=== PATIENT | female | born 1940 | race African-American/Black ===

== ENCOUNTER 2023-01-17 15:03 | Observation (INO) | payer MEDICARE, SELFPAY ==
[2023-01-17] VITALS (14 sets, daily range): BP systolic 94–130; BP diastolic 45–61; PULSE 84–101; RESP 12–18; TEMP 36.5–36.9; O2SAT 98–100; BMI 17.9
--- NOTE | ~2023-01-17 | CT_ITS ---
EXAMINATION: CT abdomen pelvis wo con DATE: 01/17/2023 17:46 INDICATION: Weakness, black stools, weight loss TECHNIQUE: Computed tomography (CT) of the abdomen and pelvis was performed without intravenous contr ast. The dose-length product (DLP) was 232.06 mGy-cm. Automated exposure control and iterative recons truction technique were employed. COMPARISON: None FINDINGS: The lung bases are clear. The heart size is normal. The liver, spleen, pancreas, and right adrenal gland are normal. There is a 10 mm low-density mass of the left adrenal gland, consistent wit h an adenoma. Nonobstructing stones of the right kidney measure up to 7 mm. There is a 5 mm nonobstru cting stone of the left kidney. There is mild bilateral hydronephrosis. No pathologically enlarged ab dominal or pelvic lymph nodes are identified. The patient appears to have undergone resection with ne obladder formation. There is mild gaseous distention of the rectum. A colostomy is present in the rig ht lower quadrant. There is a moderate volume of liquid stool in the colon. No free intraperitoneal g as is identified. There is moderate lumbar spondylosis. IMPRESSION: 1. No CT correlate for the patient's symptoms. 2. Mild bilateral hydronephrosis likely related to cystectomy and neobladder formation 3. Bilateral nonobstructing nephrolithiasis. Reviewed, dictated and finalized at location F. IMPRESSION: 1. No CT correlate for the patient's symptoms. 2. Mild bilateral hydronephrosis likely related to cystectomy and neobladder fo rmation 3. Bilateral nonobstructing nephrolithiasis.
--- NOTE | 2023-01-17 15:14 | ECG_ITS ---
Measurements Intervals Dent Rate: 86 P: 70 MA: 243 QRS: 0 QRSD: 97 T: 79 QT: 328 QTc: 392 Interpretive Statements SINUS RHYTHM WITH FIRST DEGREE AV BLOCK POSSIBLE LEFT ATRIAL ENLARGEMENT INCOMPLETE RIGHT BUNDLE BRANCH BLOCK BASELINE ARTIFACT- I, II, III, AVR, AVL BORDERLINE ECG NO PREVIOUS ECG AVAILABLE FOR COMPARISON Electronically Signed On 01-17-2023 16:13:28 CDT by Gilberto Jean Baptiste D.O.
--- NOTE | 2023-01-17 15:54 | ED.GENADULT ---
HPI - General Adult General Chief complaint: Weakness Stated complaint: weakness Time Seen by Provider: 01/17/23 15:11 Source: family and RN notes reviewed History of Present Illness HPI narrative: Patient presents emergency department from home for weakness. She is per the patient as well as family that is present. Patient does have a history of dementia and is a poor historian currently was at home by herself. Per the family the patient has been more weak over the past 1 week. States she has not been eating and drinking as much as well. Patient denies any complaints of pain states she has been having dark stools for the past several months. Patient denies being on any blood thinners. She denies any abdominal pain but does note gurgling in her abdomen at times she states she does note some mild shortness of breath with walking she denies any fevers or chills chest pain abdominal pain nausea vomiting or any other symptoms Related Data Allergies Allergy/AdvReac Type Severity Reaction Status Date / Time No Known Allergies Allergy Verified 01/17/23 15:04 Review of Systems Review of Systems: Gen.: Denies fevers or chills ENT: Denies congestion Respiratory: Denies shortness of breath or cough CV: Denies chest pain or palpitations GI: Denies abdominal pain nausea, emesis or diarrhea reports black stool Musculoskeletal: Denies back pain or muscle pain Neuro: Weakness in Skin: Denies rash Except as documented, all other systems reviewed and negative [facility] Past Medical History Medical History (Updated 01/17/23 @ 18:36 by Santosh Flanagan DO) Dementia Social History Social History (Updated 01/17/23 @ 15:55 by Santosh Flanagan DO) Smoking status: Never smoker Exam Narrative: APPEARANCE: No acute distress, nontoxic, resting in bed EYES: EOMI HEENT: Normocephalic, atraumatic, OMM RESPIRATORY: No respiratory distress Clear to auscultation bilaterally with no rhonchi wheezing or rales. CARDIOVASCULAR: Regular rate and rhythm without murmurs rubs or gallops. ABDOMINAL: Soft, nontender, nondistended, no rebound or guarding urostomy present Rectal: No hemorrhoids or fissures black stool present that is Hemoccult negative MUSCULOSKELETAl: Moves all extremities. No clubbing, cyanosis or edema. NEURO: Awake and alert. Following commands, speech normal, no focal deficits SKIN:: Warm, dry. No rashes lesions or abrasions PSYCHIATRIC: Normal affect/mood, Course Course Emergency Course: UA was obtained from urostomy Called and discussed with ANASTASIA Nevarez for Dr. Olivarez for hospitalist service agrees with admission at this time with patient started on Rocephin Discussed with patient and family results of workup and diagnosis. Discussed need for admission. Patient and family understand and agree to current treatment plan Vital Signs Vital signs: Vital Signs Pulse Rate 95 01/17/23 15:11 Respiratory Rate 13 01/17/23 15:11 Pulse Oximetry 98 01/17/23 15:11 Temperature 98.5 F 01/17/23 15:14 Pulse Rate 84 01/17/23 16:55 Respiratory Rate 18 01/17/23 16:45 Blood Pressure 116/56 L 01/17/23 16:01 Pulse Oximetry 100 01/17/23 16:01 Oxygen Delivery Room Air 01/17/23 15:14 Medical Decision Making MDM Narrative Medical decision making narrative: Patient presents for weakness over the past week family states has not been eating as well patient does have a history of dementia. Patient has no complaints of fever or any other acute symptoms on work-up it is noted she has a hemoglobin of 8.3 no history of anemia and a rectal exam was performed as patient states she had black stool stool is black but is Hemoccult negative patient also noted to have renal sufficiency with a creatinine 1.9 states she does have chronic renal sufficiency was unsure of what her normal renal function is patient is noted to have a UA with a urostomy secondary to these findings I did obtain a CT scan of the abdomen pelvis which did n
[2023-01-17 16:30] LABS: Basophils Percent Auto 0.5 % (0.2-1.2); Eosinophils Absolute Auto 0.1 K/mm3 (0-0.3); Eosinophils Percent Auto 1.2 % (0-4.4); Hemoglobin 8.3 g/dL (12.0-15.0); Immature Granulocyte Absolute 0.02 K/mm3 (0.00-0.031); Immature Granulocyte Percent A 0.2 % (0-0.5); Lymphocytes Absolute Auto 2.46 K/mm3 (0.9-3.2); Lymphocytes Percent Auto 30.1 % (18.3-44.2); Mean Corpuscular HGB Conc 28.6 g/dl (32-36); Mean Corpuscular Hemoglobin 27.5 pg (26-34); Mean Platelet Volume 8.2 fl (7.4-10.4); Monocytes Absolute Auto 0.5 K/mm3 (0.1-0.6); Monocytes Percent Auto 6.1 % (2.6-8.5); Neutrophils Absolute Auto 5.1 K/mm3 (1.3-6.7); Neutrophils Percent Auto 61.9 % (45.5-73.1); Platelet Count Result 363 k/mm3 (150-375); Red Blood Count 3.02 M/mm3 (4.2-5.4); Red Cell Distribution Width 14.6 % (11.5-14.5); White Blood Count 8.2 K/mm3 (4.5-10.0)
[2023-01-17 16:36] LABS: INR 1.1; Partial Thromboplastin Time 30.5 SECONDS (22.3-36.8); Prothrombin Time 14.1 Seconds (11.1-14.7)
[2023-01-17 16:37] LABS: Alanine Aminotransferase 13 U/L (6-35); Albumin Level 3.8 g/dL (3.5-5.1); Alkaline Phosphatase 94 U/L (38-126); Anion Gap 11 mmol/L (8-16); Aspartate Amino Transferase 20 U/L (14-36); Bilirubin,Total 0.4 mg/dL (0.2-1.3); Blood Urea Nitrogen 37 mg/dL (7-17); Calcium 9.6 mg/dL (8.4-10.2); Carbon Dioxide 7 mmol/L (22-30); Chloride 116 mmol/L (98-107); Estimated Glomerular Filt Rate 31; Glucose 78 mg/dL (65-110); Potassium 3.6 mmol/L (3.4-5.0); Sodium 134 mmol/L (137-145)
[2023-01-17 16:48] LABS: Hypochromasia 1+ (NORMAL); Ovalocytes 1+ (NORMAL); Platelet Estimate Adequate (Adequate)
[2023-01-17 16:49] LABS: Schistocytes None Seen (NORMAL)
[2023-01-17] MEDS: SODIUM CHLORIDE 0.9% IV 1,000 ML 999 ML IV CONT (16:52)
[2023-01-17 17:06] LABS: Appearance Urine Turbid (Clear); Bacteria Urine 4+ /hpf; Bilirubin Urine Negative (Negative); Blood Urine Negative (Negative); Glucose Urine UA Negative (Negative); Ketones Urine Negative (Negative); Leukocyte Esterase Ur 3+ LEU/UL (Negative); Need Manual Microscopic Reviewed; Nitrate Urine Negative (Negative); Protein Urine 2+ mg/dL (Negative); RBC Urine 0-2 /hpf (0-2); Specific Grav Ur 1.012 (1.001-1.035); Squamous Epithelial Cell Urine None seen /hpf (Few); Urobilinogen Urine 0.2 mg/dL (<2.0); WBC Urine 21-50 /hpf; pH Urine 8.5 (5.0-9.0)
[2023-01-17 17:08] LABS: Color Urine Red (Yellow)
[2023-01-17 17:18] LABS: Add Urine Microscopic? YES
[2023-01-17 20:07] LABS: Lactic Acid Reflex 0.5 mmol/L (0.7-2.0)
--- NOTE | 2023-01-17 21:46 | PM.IMHP ---
H&P: HPI History of Present Illness Date/Time: 01/17/23 21:46 Chief Complaint: Weakness Narrative: This is an 82-year-old female patient with a history of dementia. You patient is a very poor historian and the family's at the bedside helping her with the information. The patient has been feeling more weak over the last 7 days. She has not been eating or drinking very well. Patient denies any complaints. The patient stated that she has been having black stools. The patient has no nausea vomiting or diarrhea. She denied any fever chills. She does not complain of any abdominal discomfort. The family members stated that the patient has chronic kidney disease stage IIIB. The patient does follow with Nephrology. The patient also has a history of having bladder cancer and has a urostomy. Abdominal pelvis CT was read as follows. No CT correlate for the patient's symptoms. 2. Mild bilateral hydronephrosis likely related to cystectomy and neobladder formation 3. Bilateral nonobstructing nephrolithiasis. Her H&H is 8.3 and 29.0 with no prior labs for comparison. Sodium is 134. Chloride 116. BUN 37 creatinine 1.9. Again no prior labs for comparison. Patient's urine was positive for UTI. The patient was started on Rocephin and IV fluids in the emergency room. Patient is being admitted to observation status on the date of service of 01/17/2023. Review of Systems Review of Systems: All systems reviewed & are unremarkable except as noted in HPI and below Constitutional: Constitutional: Reports as per HPI and Reports no additional constitutional complaints Eyes: Eyes: Reports as per HPI and Reports no additional eye complaints ENT: Reports system reviewed and no additional complaints, except as documented and Reports Normal hearing present Cardiovascular: Cardiovascular: Reports no additional cardiovascular complaints Respiratory: Respiratory: Reports no additional respiratory complaints and Reports no additional respiratory complaints Gastrointestinal: Gastrointestinal: Reports as per HPI and Reports no additional gastrointestinal complaints Musculoskeletal: Musculoskeletal: Reports no additional musculoskeletal complaints Integumentary/Breasts: Skin/Breast: Reports system reviewed and no additional complaints, except as docu and Reports as per HPI Neurologic: Reports system reviewed and no additional complaints, except as documented, Reports as per HPI and Reports Normal hearing present Psychiatric: Psychiatric: Reports no additional psychiatric complaints and Reports as per HPI Endocrine: Endocrine: Reports no additional endocrine complaints Hematologic/Lymphatic: Hematologic/Lymphatic: Reports no additional hematologic/lymphatic complaints Allergic/Immunologic: Allergic/Immunologic: Reports no additional allergic/immunologic complaints [facility] Past Medical History Medical History (Updated 01/17/23 @ 21:53 by Geri Ratliff NP) Anemia Chronic renal failure, stage 3b Dementia Glaucoma History of bladder cancer Kidney stone Surgical History Surgical History (Updated 01/17/23 @ 21:53 by Geri Ratliff NP) History of extraction of renal calculus History of urostomy Hx of cholecystectomy Family History Family History (Updated 01/17/23 @ 21:54 by Geri Ratliff NP) Mother Cerebrovascular accident Social History Social History (Updated 01/17/23 @ 21:55 by Geri Ratliff NP) Social History: The patient is and lives with family. She has 3 children. 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 Her daughter Ginger is the durable [id number] Code status full code Smoking status: Never smoker Meds Home Medications and Allergies Home Medications Medication Instructions Recorded Confirmed Type lisinopril 2.5 mg tablet 205 mg PO DAILY 01/17/23 01/17/23 History Allergies Allergy/AdvReac Type Severity Reaction Status Date / Time No Known Allergies Aller
--- NOTE | 2023-01-17 22:16 | ADMGEN ---
This patient, Micki Cunha, was admitted to [facility] Surg Room 332-01. Patient/family oriented to hospital policies and general routines including ID bracelet, bed and alarms, visiting hours, pain management, procedures, bathroom and other care routines, personal items, smoking policy, room service/diet, and visiting hours. Information on how to activate the Rapid Response Team has been discussed. Patient/Family are encouraged to report perceived risks to care and to ask questions if they do not understand what they are told or what they should do.
[2023-01-17] MEDS: SODIUM CHLORIDE 0.9% IV 1,000 ML 80 ML IV CONT (22:39)
[2023-01-18 00:11] LABS: Iron 64 ug/dL (37-170)
[2023-01-18 00:12] LABS: Lactate Dehydrogenase 155 U/L (120-246)
[2023-01-18 00:20] LABS: Transferrin 143 mg/dL (206-381)
[2023-01-18 00:21] LABS: Percent Iron Saturation 31 % (20-50)
[2023-01-18 01:20] LABS: Folic Acid 5.8 ng/mL (2.76->20)
[2023-01-18 06:00] VITALS: BP 89/38; PULSE 75; RESP 18; TEMP 36.6; O2SAT 100
[2023-01-18 07:42] LABS: Immature Reticulocyte Fraction 20.8 % (3.0-15.9); Reticulocyte Hemoglobin Conten 26.2 pg (28.2-35.7); Reticulocyte Percent 3.36 % (0.7-4.3); Reticulocytes Absolute 0.09 B/L (32.2-175.7)
[2023-01-18 07:43] LABS: Basophils Absolute Auto 0.1 K/mm3 (0.0-0.1); Basophils Percent Auto 0.8 % (0.2-1.2); Eosinophils Absolute Auto 0.1 K/mm3 (0-0.3); Eosinophils Percent Auto 1.4 % (0-4.4); Hematocrit 27.9 % (37.0-47.0); Hemoglobin 7.9 g/dL (12.0-15.0); Immature Granulocyte Absolute 0.06 K/mm3 (0.00-0.031); Immature Granulocyte Percent A 0.8 % (0-0.5); Lymphocytes Absolute Auto 2.13 K/mm3 (0.9-3.2); Lymphocytes Percent Auto 29.3 % (18.3-44.2); Mean Corpuscular HGB Conc 28.3 g/dl (32-36); Mean Corpuscular Hemoglobin 27.7 pg (26-34); Mean Corpuscular Volume 97.9 fl (80-100); Mean Platelet Volume 8.3 fl (7.4-10.4); Monocytes Absolute Auto 0.5 K/mm3 (0.1-0.6); Monocytes Percent Auto 6.3 % (2.6-8.5); Neutrophils Absolute Auto 4.5 K/mm3 (1.3-6.7); Neutrophils Percent Auto 61.4 % (45.5-73.1); Platelet Count Result 330 k/mm3 (150-375); Red Blood Count 2.85 M/mm3 (4.2-5.4); Red Cell Distribution Width 14.6 % (11.5-14.5); White Blood Count 7.3 K/mm3 (4.5-10.0)
[2023-01-18 07:57] LABS: Alanine Aminotransferase 12 U/L (6-35); Albumin Level 3.3 g/dL (3.5-5.1); Alkaline Phosphatase 82 U/L (38-126); Anion Gap 9 mmol/L (8-16); Aspartate Amino Transferase 16 U/L (14-36); Bilirubin,Total 0.3 mg/dL (0.2-1.3); Blood Urea Nitrogen 29 mg/dL (7-17); Calcium 8.9 mg/dL (8.4-10.2); Carbon Dioxide 10 mmol/L (22-30); Chloride 121 mmol/L (98-107); Estimated CRCL calculation 21 ml/min; Estimated Glomerular Filt Rate 40; Glucose 84 mg/dL (65-110); Potassium 3.5 mmol/L (3.4-5.0); Sodium 140 mmol/L (137-145)
[2023-01-18 08:37] LABS: Hypochromasia 1+ (NORMAL); Ovalocytes 1+ (NORMAL); Platelet Estimate Adequate (Adequate)
[2023-01-18 08:38] LABS: Anisocytosis 1+ (NORMAL); Schistocytes None Seen (NORMAL)
--- NOTE | 2023-01-18 09:22 | WPDURCON ---
Assessment and Plan Assessment and plan (1) Kidney stone: Code(s): N20.0 - Calculus of kidney Status: Acute Assessment and Plan: Nonobstructive at this time. Nothing acute to do. These can be monitored (2) History of bladder cancer: Code(s): Z85.51 - Personal history of malignant neoplasm of bladder Status: Acute Assessment and Plan: She really has no active urologic issues at this time. Her ostomy is pink and viable. She has no issues with her ostomy bag. Her cystectomy was over 20 years ago. She has been in ED and terms of bladder cancer (3) Hydronephrosis: Code(s): N13.30 - Unspecified hydronephrosis Status: Acute Assessment and Plan: Mild on CT scan. This is common and expected and people with an ileal conduit in his due to vesicoureteral reflux (4) Abnormal urinalysis: Code(s): R82.90 - Unspecified abnormal findings in urine Status: Acute Assessment and Plan: This represents contamination not infection. No need for antibiotics Urology Consult Note HPI Date Seen: 01/18/23 Requesting Physician: Anish Olivarez MD Primary Care Provider: PHYSICIAN NOT ON STAFF Consult Narrative Reason for consult: Bladder cancer Narrative: Micki Cunha is a 82 year old female. She has history of bladder cancer. She had a radical cystectomy 20 years ago. She has been no evidence of disease since. She is admitted to the hospital for non urologic reasons. She had a CT scan which shows bilateral nonobstructing stones and mild bilateral hydronephrosis. This mild bilateral hydronephrosis is secondary to ostomy placement and reflux and is unlikely to be obstructive. She has no symptoms of urinary tract infection. No fever blood in the urine. No leukocytosis. She does have an abnormal urinalysis but she is colonized due to the urostomy. She currently has no specific complaints from a urologic aspect. She does not get recurrent urinary tract infections. She does not get gross hematuria. She has no specific issues related to her ostomy Review of Systems Review of Systems: All systems reviewed & are unremarkable except as noted in HPI and below PMFSH Past Medical History Medical History Anemia Chronic renal failure, stage 3b Dementia Glaucoma History of bladder cancer Kidney stone Surgical History Surgical History History of extraction of renal calculus History of urostomy Hx of cholecystectomy Family History Family History (Updated 01/17/23 @ 21:54 by Geri Ratliff NP) Mother Cerebrovascular accident Social History Social History Social History: The patient is and lives with family. She has 3 children. 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 Her daughter Ginger is the durable [id number]-[id number] Code status full code Smoking status: Former smoker Alcohol intake: never Substance use: never Lack of Transportation: No Lack of Food: Never True Current Housing: I Have Housing Concerned About Future Housing: No Difficulty Paying Gas/Electric Bills: No Difficulty Paying for Meds: No Currently Unemployed: No Education: High School Diploma/GED Difficulty w/ Childcare or Family Care: No Spiritual care concerns: No Meds Home Medications and Allergies Home Medications Medication Instructions Recorded Confirmed Type lisinopril 2.5 mg tablet 2.5 mg PO DAILY 01/17/23 01/17/23 History Allergies Allergy/AdvReac Type Severity Reaction Status Date / Time No Known Allergies Allergy Verified 01/17/23 15:04 Vital Signs Vital Signs - 24 hr 01/17/23 15:14 01/17/23 16:55 01/17/23 15:11 Temperature 98.5 F Pulse Rate 88 84 95 Respiratory Rate 18 13 Blood Pressure 121/58 L Pulse Oximetry 10
[2023-01-18 09:31] VITALS: O2SAT 94
[2023-01-18] MEDS: FAMOTIDINE 20 MG/2 ML VIAL IV PUSH ×2 (10:05→21:32)
[2023-01-18 11:53] LABS: Hematocrit 27.6 % (37.0-47.0); Hemoglobin 7.7 g/dL (12.0-15.0)
--- NOTE | 2023-01-18 13:58 | PM.IMPN ---
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 Continue to monitor. 01/18/2023 Interval history: 82-year-old female with history of bladder cancer presented with weakness and tiredness also complains of black tarry stool, suspicious for upper GI bleed and anemia patient states sees been feeling require some time now cough, also patient seen by urologist with history of bladder cancer and evaluated patient remains clinically stable no further workup is recommended, will do the stool Hemoccult will monitor hemoglobin and further recommendation to follow (2) Anemia: Code(s): D64.9 - Anemia, unspecified Status: Acute Assessment and Plan: H&H every 6 hours Check stool for occult blood The patient is not on any blood thinners. The patient was Hemoccult negative in the emergency room. The patient stated that she had dark stools at home. (3) Acute UTI: Code(s): N39.0 - Urinary tract infection, site not specified Status: Acute Assessment and Plan: The patient was started on Rocephin Blood and urine cultures are pending Tailor antibiotics to culture and sensitivity results. (4) Glaucoma: Code(s): H40.9 - Unspecified glaucoma Status: Acute Assessment and Plan: Continue with her eyedrops of latanoprost (5) Kidney stone: Code(s): N20.0 - Calculus of kidney Status: Acute Assessment and Plan: Mild bilateral hydronephrosis likely related to cystectomy and neobladder formation 3. Bilateral nonobstructing nephrolithiasis. Urology has been consulted. (6) Dementia: Code(s): F03.90 - Unspecified dementia, unspecified severity, without behavioral disturbance, psychotic disturbance, mood disturbance, and anxiety Status: Acute Assessment and Plan: The patient is no longer on any medications for dementia. She had been on medication in the past but was taken off of them. Subjective Date/time seen: 01/18/23 13:58 Weakness HPI-Narrative: This is an 82-year-old female patient with a history of dementia.? You patient is a very poor historian and the family's at the bedside helping her with the information.? The patient has been feeling more weak over the last 7 days.? She has not been eating or drinking very well.? Patient denies any complaints.? The patient stated that she has been having black stools.? The patient has no nausea vomiting or diarrhea.? She denied any fever chills.? She does not complain of any abdominal discomfort.? The family members stated that the patient has chronic kidney disease stage IIIB.? The patient does follow with Nephrology.? The patient also has a history of having bladder cancer and has a urostomy.? Abdominal pelvis CT was read as follows. No CT correlate for the patient's symptoms. 2. Mild bilateral hydronephrosis likely related to cystectomy and neobladder formation 3. Bilateral nonobstructing nephrolithiasis. Her H&H is 8.3 and 29.0 with no prior labs for comparison.? Sodium is 134.? Chloride 116.? BUN 37 creatinine 1.9.? Again no prior labs for comparison.? Patient's urine was positive for UTI.? The patient was started on Rocephin and IV fluids in the emergency room. 01/18/2023 Interval history: 82-year-old female with history of bladder cancer presented with weakness and tiredness also complains of black tarry stool, suspicious for upper GI bleed and anemia patient states sees been feeling require some time now cough, also patient seen by urologist with history of bladder cancer and evaluated patient remains clinically stable no further workup is recommended, will do the stool Hemoccult will monitor hemoglobin and further recommendation to follow Review of Systems Review of Systems: All syst
[2023-01-18 14:00] VITALS: BP 112/50; PULSE 83; RESP 20; TEMP 36.2; O2SAT 100
[2023-01-18] MEDS: SODIUM CHLORIDE 0.9% IV 1,000 ML 80 ML IV CONT (14:23)
[2023-01-18 16:33] LABS: Hematocrit 23.8 % (37.0-47.0)
[2023-01-18] MEDS: POTASSIUM CHLORIDE 20 MEQ TABLET 40 MEQ PO (16:34)
--- NOTE | 2023-01-18 16:51 | PC.NURSE ---
Dr. Olivarez notified that patients Hgb is 7. Patient is currently getting 80 ml of NS/hr. No signs or symptoms of bleeding noted,patient denies abdominal pain, dizziness, fatigue, or shortness of breath. Still waiting for patient to provide stool sample for occult stool test. Patient eating and drinking. Dr Olivarez approved to discontinue IV fluids at this time.
[2023-01-18 21:21] VITALS: BP 114/53; PULSE 75; RESP 18; TEMP 36.6; O2SAT 98
[2023-01-19 06:00] VITALS: BP 106/55; PULSE 70; RESP 20; TEMP 36.4; O2SAT 100
[2023-01-19 07:00] LABS: Hematocrit 30.6 % (37.0-47.0); Hemoglobin 8.7 g/dL (12.0-15.0); Mean Corpuscular HGB Conc 28.4 g/dl (32-36); Mean Corpuscular Hemoglobin 27.7 pg (26-34); Mean Corpuscular Volume 97.5 fl (80-100); Mean Platelet Volume 8.3 fl (7.4-10.4); Platelet Count Result 352 k/mm3 (150-375); Red Blood Count 3.14 M/mm3 (4.2-5.4); Red Cell Distribution Width 14.7 % (11.5-14.5); White Blood Count 7.1 K/mm3 (4.5-10.0)
[2023-01-19 07:13] LABS: Anion Gap 10 mmol/L (8-16); Blood Urea Nitrogen 23 mg/dL (7-17); Calcium 9.4 mg/dL (8.4-10.2); Carbon Dioxide 9 mmol/L (22-30); Chloride 123 mmol/L (98-107); Estimated CRCL calculation 24 ml/min; Estimated Glomerular Filt Rate 48; Glucose 88 mg/dL (65-110); Magnesium 1.5 mg/dL (1.6-2.3); Potassium 3.8 mmol/L (3.4-5.0); Sodium 142 mmol/L (137-145)
[2023-01-19] MEDS: FAMOTIDINE 20 MG/2 ML VIAL IV PUSH ×2 (08:40→21:40)
[2023-01-19 14:00] VITALS: BP 129/57; PULSE 88; RESP 20; TEMP 36.2; O2SAT 100
--- NOTE | 2023-01-19 14:24 | PM.IMPN ---
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 Continue to monitor. 01/19/2023 Interval history: 82-year-old female with history of bladder cancer presented with weakness and tiredness also complains of black tarry stool, suspicious for upper GI bleed and anemia patient states she is been feeling tired some time now cough, also patient seen by urologist with history of bladder cancer and evaluated patient remains clinically stable no further workup is recommended, patient hemoglobin remains stable, if his stool Hemoccult is positive will consult GI, will do the stool Hemoccult will monitor hemoglobin and further recommendation to follow (2) Anemia: Code(s): D64.9 - Anemia, unspecified Status: Acute Assessment and Plan: H&H every 6 hours Check stool for occult blood The patient is not on any blood thinners. The patient was Hemoccult negative in the emergency room. The patient stated that she had dark stools at home. (3) Acute UTI: Code(s): N39.0 - Urinary tract infection, site not specified Status: Acute Assessment and Plan: The patient was started on Rocephin Blood and urine cultures are pending Tailor antibiotics to culture and sensitivity results. (4) Glaucoma: Code(s): H40.9 - Unspecified glaucoma Status: Acute Assessment and Plan: Continue with her eyedrops of latanoprost (5) Kidney stone: Code(s): N20.0 - Calculus of kidney Status: Acute Assessment and Plan: Mild bilateral hydronephrosis likely related to cystectomy and neobladder formation 3. Bilateral nonobstructing nephrolithiasis. Urology has been consulted. (6) Dementia: Code(s): F03.90 - Unspecified dementia, unspecified severity, without behavioral disturbance, psychotic disturbance, mood disturbance, and anxiety Status: Acute Assessment and Plan: The patient is no longer on any medications for dementia. She had been on medication in the past but was taken off of them. Subjective Date/time seen: 01/19/23 14:24 01/19/2023 Interval history: 82-year-old female with history of bladder cancer presented with weakness and tiredness also complains of black tarry stool, suspicious for upper GI bleed and anemia patient states she is been feeling tired some time now cough, also patient seen by urologist with history of bladder cancer and evaluated patient remains clinically stable no further workup is recommended, patient hemoglobin remains stable, if his stool Hemoccult is positive will consult GI, will do the stool Hemoccult will monitor hemoglobin and further recommendation to follow Review of Systems Review of Systems: All systems reviewed & are unremarkable except as noted in HPI and below Exam Narrative: Patient is comfortable, NAD HEENT: eyes are clear and none icteric LUNGS: Normal respiratory effort ABD: Not distended Lower extremities: no edema SKIN: nonjaundiced Neuro: grossly intact. Objective Data Vital Signs Vital Signs: Vital Signs - 24 hr 01/18/23 21:21 01/18/23 20:25 01/19/23 06:00 Temperature 97.8 F 97.6 F Pulse Rate 75 70 Respiratory Rate 18 20 Blood Pressure 114/53 L 106/55 L Pulse Oximetry 98 100 Oxygen Delivery Room Air 01/19/23 14:00 Temperature 97.1 F L Pulse Rate 88 Respiratory Rate 20 Blood Pressure 129/57 L Pulse Oximetry 100 Oxygen Delivery Intake/Output Intake/Output: Intake & Output 01/16/23 01/17/23 01/18/23 01/19/23 23:59 23:59 23:59 23:59 Intake Total 3150 1422 Output Total 400 Balance 3150 1022 Meds/Results Medications: Active Medications Generic Name Dose Route Start Last Admin Trade Name Freq PRN Reason Stop Dose Admin Famotidine
[2023-01-19 20:00] VITALS: PULSE 82; RESP 20; O2SAT 100
[2023-01-19 20:32] VITALS: BP 119/52; PULSE 82; RESP 20; TEMP 36.9; O2SAT 100
[2023-01-19 21:40] LABS: IFOB Positive Control Positive; Immunochemical Fecal Occult Bl Negative (N)
[2023-01-20 06:00] VITALS: BP 104/55; PULSE 72; RESP 20; TEMP 36.8; O2SAT 100
[2023-01-20 07:41] LABS: Hematocrit 27.2 % (37.0-47.0); Hemoglobin 7.8 g/dL (12.0-15.0); Mean Corpuscular HGB Conc 28.7 g/dl (32-36); Mean Corpuscular Hemoglobin 27.7 pg (26-34); Mean Corpuscular Volume 96.5 fl (80-100); Mean Platelet Volume 8.2 fl (7.4-10.4); Platelet Count Result 302 k/mm3 (150-375); Red Blood Count 2.82 M/mm3 (4.2-5.4); Red Cell Distribution Width 14.8 % (11.5-14.5); White Blood Count 7.3 K/mm3 (4.5-10.0)
[2023-01-20 07:52] LABS: Anion Gap 8 mmol/L (8-16); Blood Urea Nitrogen 20 mg/dL (7-17); Calcium 8.6 mg/dL (8.4-10.2); Carbon Dioxide 10 mmol/L (22-30); Chloride 119 mmol/L (98-107); Estimated CRCL calculation 22 ml/min; Estimated Glomerular Filt Rate 44; Glucose 83 mg/dL (65-110); Magnesium 1.6 mg/dL (1.6-2.3); Potassium 3.5 mmol/L (3.4-5.0); Sodium 137 mmol/L (137-145)
[2023-01-20] MEDS: MAGNESIUM SULF 2 GM/WATER 50ML 2 GM/50 ML BAG IVPB (09:22)
[2023-01-20] MEDS: FAMOTIDINE 20 MG/2 ML VIAL IV PUSH (09:23)
--- NOTE | 2023-01-20 11:21 | PM.DS ---
DS: Admitting Diagnosis Discharge Date 01/20/2023 Admitting Diagnosis Weakness DS: Discharge Diagnosis Discharge Diagnosis (1) Chronic renal failure, stage 3b: Code(s): N18.32 - Chronic kidney disease, stage 3b Status: Acute Assessment and Plan: The daughter showed me the paperwork from the patient's hospice nurse practitioner and she has stage 3B chronic renal failure. Continue to monitor. 01/19/2023 Interval history: 82-year-old female with history of bladder cancer presented with weakness and tiredness also complains of black tarry stool, suspicious for upper GI bleed and anemia patient states she is been feeling tired some time now cough, also patient seen by urologist with history of bladder cancer and evaluated patient remains clinically stable no further workup is recommended, patient hemoglobin remains stable, if his stool Hemoccult is positive will consult GI, will do the stool Hemoccult will monitor hemoglobin and further recommendation to follow (2) Anemia: Code(s): D64.9 - Anemia, unspecified Status: Acute Assessment and Plan: H&H every 6 hours Check stool for occult blood The patient is not on any blood thinners. The patient was Hemoccult negative in the emergency room. The patient stated that she had dark stools at home. (3) Acute UTI: Code(s): N39.0 - Urinary tract infection, site not specified Status: Acute Assessment and Plan: The patient was started on Rocephin Blood and urine cultures are pending Tailor antibiotics to culture and sensitivity results. (4) Glaucoma: Code(s): H40.9 - Unspecified glaucoma Status: Acute Assessment and Plan: Continue with her eyedrops of latanoprost (5) Kidney stone: Code(s): N20.0 - Calculus of kidney Status: Acute Assessment and Plan: Mild bilateral hydronephrosis likely related to cystectomy and neobladder formation 3. Bilateral nonobstructing nephrolithiasis. Urology has been consulted. (6) Dementia: Code(s): F03.90 - Unspecified dementia, unspecified severity, without behavioral disturbance, psychotic disturbance, mood disturbance, and anxiety Status: Acute Assessment and Plan: The patient is no longer on any medications for dementia. She had been on medication in the past but was taken off of them. DS: Summary Hospital Course Reason for hospitalization: Weakness Narrative: This is an 82-year-old female patient with a history of dementia.? You patient is a very poor historian and the family's at the bedside helping her with the information.? The patient has been feeling more weak over the last 7 days.? She has not been eating or drinking very well.? Patient denies any complaints.? The patient stated that she has been having black stools.? The patient has no nausea vomiting or diarrhea.? She denied any fever chills.? She does not complain of any abdominal discomfort.? The family members stated that the patient has chronic kidney disease stage IIIB.? The patient does follow with Nephrology.? The patient also has a history of having bladder cancer and has a urostomy.? Abdominal pelvis CT was read as follows. No CT correlate for the patient's symptoms. 2. Mild bilateral hydronephrosis likely related to cystectomy and neobladder formation 3. Bilateral nonobstructing nephrolithiasis. Her H&H is 8.3 and 29.0 with no prior labs for comparison.? Sodium is 134.? Chloride 116.? BUN 37 creatinine 1.9.? Again no prior labs for comparison.? Patient's urine was positive for UTI.? The patient was started on Rocephin and IV fluids in the emergency room.? Patient is being admitted to observation status on the date of service of 01/17/2023. Hospital Course: ?82-year-old female with history of bladder cancer presented with weakness and tiredness also complains of black tarry stool, suspicious for upper GI bleed and anemia patient states she is been feeling tired for some time now coughing , also patient s
[2023-01-21 13:36] LABS: Albumin 3.3 g/dL (3.8-4.8); Alpha 1 Globulin 0.3 g/dL (0.2-0.3); Alpha 2 Globulin 0.5 g/dL (0.5-0.9); Beta 1 Globulin 0.3 g/dL (0.4-0.6); Gamma Globulin 0.9 g/dL (0.8-1.7); Protein, Total 5.4 g/dL (6.1-8.1)
[2023-01-22 20:49] LABS: Haptoglobin 76 mg/dL (43-212)
[2023-01-24 05:48] LABS: Creatinine, Random Urine 29 mg/dL (20-275); Total Protein/Creatinine Ratio 966 mg/g creat (24-184)
[2023-01-24 22:37] LABS: Soluble Transferrin Receptor 1.77 mg/L (0.76-1.76)
== END 2023-01-20 12:10 | disposition home or self-care (01) ==
LOC: ANHED 15:30 → ANH3MEDSUR 18:19
PROVIDERS: Nurse Practitioner; Admitting Provider Family Medicine; Emergency Provider Emergency Medicine; Visit Provider Family Medicine
DX: N13.2 Hydronephrosis with renal and ureteral calculous obstruction (principal); R53.1 Weakness; F03.90 Unspecified dementia, unspecified severity, without behavioral disturbance, psychotic disturbance, mood disturbance, and anxiety; R06.00 Dyspnea, unspecified; R63.0 Anorexia; Z68.1 Body mass index [BMI] 19.9 or less, adult; N17.9 Acute kidney failure, unspecified; N18.32 Chronic kidney disease, stage 3b; N39.0 Urinary tract infection, site not specified; B96.20 Unspecified Escherichia coli [E. coli] as the cause of diseases classified elsewhere; Z93.6 Other artificial openings of urinary tract status; E27.8 Other specified disorders of adrenal gland; D64.9 Anemia, unspecified; H40.9 Unspecified glaucoma; Z90.6 Acquired absence of other parts of urinary tract; I44.0 Atrioventricular block, first degree; I45.10 Unspecified right bundle-branch block; Z85.51 Personal history of malignant neoplasm of bladder; Z87.891 Personal history of nicotine dependence; Z79.899 Other long term (current) drug therapy
CPT/HCPCS: 36415; 74176; 80048; 80053; 81001; 82247; 82248; 82274; 82570; 82607; 82728; 82746; 83010; 83540; 83550; 83605; 83615; 83735; 84155; 84156; 84165; 84166; 84238; 84443; 84466; 85014; 85018; 85025; 85027; 85046; 85610; 85730; 86850; 86880; 86900; 86901; 87040; 87077; 87086; 87186; 93005; 96361; 96365; 96375; 96376; 99285; A9270; G0378; J0696; J3475; J7030

== ENCOUNTER 2023-01-24 18:24 | Emergency (ER) | payer MEDICARE, SELFPAY ==
--- NOTE | ~2023-01-24 | CT_ITS ---
EXAMINATION: CT brain wo con DATE: 01/24/2023 18:46 INDICATION: Patient fell and struck head. Head injury. TECHNIQUE: Computed tomography (CT) of the head was performed without intravenous contrast. The mA wa s adjusted according to patient size. Iterative reconstruction technique was employed. Exam dose: 60 5.33 mGy-cm total exam DLP. COMPARISON: None FINDINGS: There are are prominent bilateral carotid siphon internal carotid artery calcifications. Th ere is nonspecific diminished attenuation of the cerebral white matter, likely due to chronic small v essel ischemic changes. No intracranial mass lesion or hemorrhage, midline shift or mass effect effect is detected. No subdural or epidural hematoma is detected. The mastoid air cells and included paranasal sinuses are normally developed and aerated. No fracture or bone destruction of the cranial vault. IMPRESSION: Cerebral atherosclerosis and chronic small vessel ischemic changes of the cerebral white matter No skull fracture or acute intracranial finding Reviewed, dictated and finalized at [facility]. Reviewed, dictated and finalized at [facility].
--- NOTE | ~2023-01-24 | CT_ITS ---
EXAMINATION: CT cervical spine wo con DATE: 01/24/2023 18:46 INDICATION: Patient fell and struck head. TECHNIQUE: Computed tomography (CT) of the cervical spine was performed without intravenous contrast. Automated exposure control and iterative reconstruction technique were employed. Exam dose: 124.87 mGy-cm total exam DLP. COMPARISON: None FINDINGS: C1 and C2 are normally aligned and the odontoid process is intact. No fracture or dislocation, locked facet or prevertebral soft tissue swelling. There is moderately severe degenerative disc disease at C6-7, mild degenerative disease at some of th e remaining cervical interspaces. There is prominent degenerative change at the apophyseal joints thr oughout the cervical spine.. Uncovertebral joint spurring at C5-6 and C6-7. IMPRESSION: Cervical spondylosis; no fracture or dislocation or locked facet Reviewed, dictated and finalized at [facility]. Reviewed, dictated and finalized at [facility].
[2023-01-24 18:33] VITALS: BP 134/66; PULSE 89; RESP 20; TEMP 36.6; O2SAT 93
--- NOTE | 2023-01-24 21:06 | PC.NURSE ---
no answer at triage
== END 2023-01-24 21:45 | disposition left against medical advice (07) ==
LOC: ANHED 21:18
PROVIDERS: Emergency Provider General Practice
DX: S09.90XA Unspecified injury of head, initial encounter (principal)
CPT/HCPCS: 70450; 72125; 99199